=== PATIENT | male | born 1940 | race Caucasian/White ===

== ENCOUNTER 2017-12-04 16:11 | Emergency (ER) | payer MEDICARE, BC ==
[~2017-12-04] VITALS: Ht 180.3 cm; Wt 70.5 kg
[2017-12-04 16:53] VITALS: Ht 180.3 cm; Wt 70.5 kg
[2017-12-04] MEDS ORDERED: METHOTREXATE2.5 MG PO ×2 (16:54→16:55)
[2017-12-04] MEDS ORDERED: COZAAR100 MG PO (16:55)
[2017-12-04] MEDS ORDERED: FOLIC ACID1 MG PO (16:56)
[2017-12-04 17:54] LABS: BASOPHILS 0.4 % (0-2); EOSINOPHILS 2.6 % (0-7); HEMATOCRIT 34.6 % (42.0-54.0); HEMOGLOBIN 11.4 g/dL (13.5-17.5); IMMATURE GRANULOCYTES 0.2 % (0-5); MCH 32.2 pg (26.0-34.0); MCHC 32.9 g/dL (31.0-37.0); MCV 97.7 fL (80.0-100.0); MONOCYTES 3.4 % (2-11); NEUTROPHILS 77.4 % (40-80); PLATELET COUNT 291 10x3/uL (130-400); RBC 3.54 10x6/uL (4.20-6.10); RDW 15.2 % (11.5-14.5); WBC 8.5 10x3/uL (4.8-10.8)
[2017-12-04 18:12] LABS: APTT 28.5 SECONDS (22.8-39.4); INR 1.13 (0.85-1.17); PROTIME 14.1 SECONDS (11.6-15.0)
[2017-12-04 18:18] LABS: ALKALINE PHOSPHATASE 64 U/L (46-116); ALT (SGPT) 18 U/L (10-68); BILIRUBIN - TOTAL 0.52 mg/dL (0.2-1.3); CALC OSMOLALITY 284 mosm/kg (275-300); CALCIUM 8.5 mg/dL (8.5-10.1); CARBON DIOXIDE 28.8 mmol/L (21.0-32.0); CHLORIDE - SERUM 106 mmol/L (98-107); GLUCOSE 157 mg/dL (74-106); POTASSIUM - SERUM 4.5 mmol/L (3.5-5.1); PROTEIN - SERUM 6.5 g/dL (6.4-8.2); SODIUM 140 mmol/L (136-145); UREA NITROGEN 20 mg/dL (7-18); eGFR NON AFRICAN AMERICAN 34 mL/min (90-120)
[2017-12-04 18:55] LABS: CKMB 0.8 U/L (0.0-3.6); LIPASE 161 U/L (73-393); MAGNESIUM - SERUM 2.2 mg/dL (1.8-2.4); TROPONIN-I < 0.017 ng/mL (0.000-0.060)
[2017-12-04 22:29] LABS: BASOPHILS 0.3 % (0-2); EOSINOPHILS 3.2 % (0-7); HEMOGLOBIN 11.7 g/dL (13.5-17.5); IMMATURE GRANULOCYTES 0.1 % (0-5); LYMPHOCYTES 23.6 % (15-50); MCH 32.4 pg (26.0-34.0); MCHC 33.4 g/dL (31.0-37.0); MEAN PLATELET VOLUME 10.1 fL (7.4-10.4); MONOCYTES 3.4 % (2-11); NEUTROPHILS 69.4 % (40-80); PLATELET COUNT 325 10x3/uL (130-400); RBC 3.61 10x6/uL (4.20-6.10); RDW 15.2 % (11.5-14.5); WBC 10.5 10x3/uL (4.8-10.8)
[2017-12-04 22:40] LABS: APTT 29.8 SECONDS (22.8-39.4); INR 1.15 (0.85-1.17); PROTIME 14.3 SECONDS (11.6-15.0)
[2017-12-04 22:41] LABS: D-DIMER-QUANTITATIVE 0.54 ug/mLFEU (0.20-0.54)
[2017-12-04 22:45] LABS: ALBUMIN 3.2 g/dL (3.4-5.0); ALKALINE PHOSPHATASE 69 U/L (46-116); ALT (SGPT) 20 U/L (10-68); BILIRUBIN - TOTAL 0.87 mg/dL (0.2-1.3); CALC OSMOLALITY 281 mosm/kg (275-300); CALCIUM 8.8 mg/dL (8.5-10.1); CHLORIDE - SERUM 107 mmol/L (98-107); CREATININE - SERUM 1.9 mg/dL (0.6-1.3); POTASSIUM - SERUM 4.3 mmol/L (3.5-5.1); PROTEIN - SERUM 6.8 g/dL (6.4-8.2); SODIUM 140 mmol/L (136-145); UREA NITROGEN 21 mg/dL (7-18); eGFR NON AFRICAN AMERICAN 36 mL/min (90-120)
[2017-12-04 22:47] LABS: GLUCOSE 107 mg/dL (74-106)
[2017-12-04 22:56] LABS: CKMB 0.7 U/L (0.0-3.6); CREATINE KINASE 37 UL (21-232)
[2017-12-04 23:06] LABS: TROPONIN-I < 0.017 ng/mL (0.000-0.060)
[2017-12-05 00:22] VITALS: BP 167/71
== END 2017-12-05 00:25 | disposition other institution (70) ==
LOC: D.ER 16:11
PROVIDERS: Family Medicine
DX: G45.9 Transient cerebral ischemic attack, unspecified (principal); G81.91 Hemiplegia, unspecified affecting right dominant side; S61.511A Laceration without foreign body of right wrist, initial encounter; W19.XXXA Unspecified fall, initial encounter; Y93.89 Activity, other specified; Y92.89 Other specified places as the place of occurrence of the external cause; R20.2 Paresthesia of skin; I10 Essential (primary) hypertension

== ENCOUNTER 2018-02-14 14:56 | Emergency (ER) | payer MEDICARE, BC ==
[~2018-02-14] VITALS: Ht 180.3 cm; Wt 67.3 kg
[~2018-02-14 14:56] MED LIST: COZAAR100 MG PO; FOLIC ACID1 MG PO; METHOTREXATE2.5 MG PO
[2018-02-14 15:01] VITALS: Ht 180.3 cm; Wt 67.3 kg
[2018-02-14] MEDS ORDERED: PLAVIX75 MG (15:03)
[2018-02-14] MEDS ORDERED: XARELTO10 MG PO (15:03)
[2018-02-14] MEDS ORDERED: ATORVASTATIN (15:04)
[2018-02-14 15:32] LABS: BASOPHILS 0.5 % (0-2); EOSINOPHILS 7.9 % (0-7); HEMATOCRIT 31.4 % (42.0-54.0); HEMOGLOBIN 10.1 g/dL (13.5-17.5); IMMATURE GRANULOCYTES 0.2 % (0-5); LYMPHOCYTES 19.1 % (15-50); MCH 29.5 pg (26.0-34.0); MCHC 32.2 g/dL (31.0-37.0); MCV 91.8 fL (80.0-100.0); MEAN PLATELET VOLUME 10.3 fL (7.4-10.4); NEUTROPHILS 61.3 % (40-80); RBC 3.42 10x6/uL (4.20-6.10); RDW 14.5 % (11.5-14.5); WBC 8.2 10x3/uL (4.8-10.8)
[2018-02-14 15:33] LABS: PLATELET COUNT 257 10x3/uL (130-400)
[2018-02-14 15:39] LABS: APTT 35.9 SECONDS (22.8-39.4); INR 1.66 (0.85-1.17); PROTIME 19.1 SECONDS (11.6-15.0)
[2018-02-14 15:46] LABS: ANION GAP 14.7 mmol/L (8-16); BILIRUBIN - TOTAL 0.41 mg/dL (0.2-1.3); CALCIUM 8.2 mg/dL (8.5-10.1); CARBON DIOXIDE 23.3 mmol/L (21.0-32.0); PROTEIN - SERUM 6.9 g/dL (6.4-8.2)
[2018-02-14 17:29] VITALS: BP 158/74
== END 2018-02-14 17:32 | disposition home or self-care (01) ==
LOC: D.ER 14:56
PROVIDERS: Family Medicine
DX: S09.90XA Unspecified injury of head, initial encounter (principal); S51.011A Laceration without foreign body of right elbow, initial encounter; W10.9XXA Fall (on) (from) unspecified stairs and steps, initial encounter; Y93.89 Activity, other specified; Y92.019 Unspecified place in single-family (private) house as the place of occurrence of the external cause; Z86.73 Personal history of transient ischemic attack (TIA), and cerebral infarction without residual deficits; I10 Essential (primary) hypertension

== ENCOUNTER 2018-06-25 09:55 | Inpatient (IN) | payer MEDICARE, BC ==
[~2018-06-25] VITALS: Ht 180.3 cm; Wt 68.2 kg
--- NOTE | ~2018-06-25 | CN ---
PATIENT NAME:GARO BROWN JR. MEDICAL RECORD: [id number] : 36 LOCATION:. D.2121 ADMIT DATE: 06/25/18 ACCOUNT: [id number] CONSULTING PHYSICIAN: POLLO SEYMOUR MD REFERRING PHYSICIAN: MICHEL ACEVEDO MD DATE OF CONSULTATION: 06/25/2018 Pulmonary Consultation CONSULT REQUESTING PHYSICIAN: Dr. Acevedo. REASON FOR CONSULTATION: Suspect COPD. HISTORY OF PRESENT ILLNESS: Mr. Brown is an 78-year-old gentleman who has coronary artery disease, atrial fibrillation. The patient came into the hospital with tachycardia and shortness of breath, found out the patient was in atrial fibrillation with rapid ventricular response. Now, he is feeling a little bit better. Denies any fever or chill, no night sweats. No yellow color sputum production. He does not hear himself wheezing. PAST MEDICAL HISTORY: 1. History of cerebrovascular accident. 2. Hypertension. 3. Coronary artery disease and NM. PAST SURGICAL HISTORY: Cardiac catheterization and stent placement. MEDICATIONS: Fluent Home is reviewed. PERSONAL AND SOCIAL HISTORY: The patient is an ex-smoker. He quit 1980. He is a nondrinker. FAMILY HISTORY: Significant for hypertension. PHYSICAL EXAMINATION: GENERAL: Now, the patient is lying comfortably, but he is not in acute distress. VITAL SIGNS: The blood pressure is 117/64, pulse is 84 to 114, temperature 97.9, SPO2 is 96% on room air. HEENT: Conjunctivae are pink. Sclerae are not icteric. NECK: Supple, no JVD. CHEST: Excursion is minimal on both sides. There is no wheeze, no rales. HEART: Rate and rhythm irregular. Normal sound. No murmur. ABDOMEN: Soft, bowel sounds present. No hepatosplenomegaly. RECTAL: Deferred. EXTREMITIES: No cyanosis, no clubbing, no pedal edema. CENTRAL NERVOUS SYSTEM: The patient is awake and alert. There is no obvious cranial nerve abnormality. The patient is a bit hard of hearing. OTHER LABORATORY DATA: CBC: The WBC is 13.4, hemoglobin is 10.3, hematocrit is 32.9, the platelet count is 698. Chemistry: Sodium 143, potassium 4.1, BUN is 21, creatinine 2.5. IMPRESSION: 1. Dyspnea, most likely secondary to atrial fibrillation with rapid ventricular CONSULT REPORT [id number] STEPHANIEGARO . response. 2. Ex-smoker. 3. Suspect chronic obstructive pulmonary disease. 4. Leukocytosis. 5. Chronic kidney disease, start him on doxycycline. 6. Check alpha 1 level. The patient will need workup for COPD with PFTs as outpatient. IMAGING: Chest radiograph, there were large hiatal hernia with air-fluid level. Otherwise, there are no acute infiltrates. Dr. Acevedo, thank you for involving me in the care of Mr. Brown. TRANSINT:[id number] Voice Confirmation ID: [id number] DOCUMENT ID: [id number] POLLO SEYMOUR MD CC: [id number] DICTATION DATE: 06/25/18 163 RADIO EQUIPMENT INSTALLER: 06/25/182235 ADM IN [id number] [place] [address]
[~2018-06-25 09:55] MED LIST changes: +ATORVASTATIN; -COZAAR100 MG PO; +COZAAR50 MG PO; +PLAVIX75 MG PO; +XARELTO15 MG PO
[2018-06-25 10:33] VITALS: BP 129/69
[2018-06-25 10:36] LABS: APTT 49.6 SECONDS (22.8-39.4); INR 2.82 (0.85-1.17)
[2018-06-25 10:38] LABS: ALBUMIN 2.7 g/dL (3.4-5.0); ALKALINE PHOSPHATASE 68 U/L (46-116); ALT (SGPT) 27 U/L (10-68); BILIRUBIN - TOTAL 0.48 mg/dL (0.2-1.3); CALC OSMOLALITY 291 mosm/kg (275-300); CALCIUM 8.6 mg/dL (8.5-10.1); CARBON DIOXIDE 23.7 mmol/L (21.0-32.0); CHLORIDE - SERUM 106 mmol/L (98-107); CREATININE - SERUM 2.5 mg/dL (0.6-1.3); POTASSIUM - SERUM 4.1 mmol/L (3.5-5.1); PROTEIN - SERUM 7.1 g/dL (6.4-8.2); SODIUM 143 mmol/L (136-145); UREA NITROGEN 21 mg/dL (7-18); eGFR NON AFRICAN AMERICAN 26 mL/min (90-120)
[2018-06-25 10:39] LABS: GLUCOSE 178 mg/dL (74-106)
[2018-06-25 10:44] LABS: BASOPHILS 0.4 % (0-2); EOSINOPHILS 1.9 % (0-7); HEMATOCRIT 32.9 % (42.0-54.0); HEMOGLOBIN 10.3 g/dL (13.5-17.5); IMMATURE GRANULOCYTES 0.2 % (0-5); LYMPHOCYTES 14.7 % (15-50); MCH 29.1 pg (26.0-34.0); MCHC 31.3 g/dL (31.0-37.0); MCV 92.9 fL (80.0-100.0); MEAN PLATELET VOLUME 10.2 fL (7.4-10.4); MONOCYTES 2.5 % (2-11); NEUTROPHILS 80.3 % (40-80); RBC 3.54 10x6/uL (4.20-6.10); RDW 18.9 % (11.5-14.5); WBC 13.4 10x3/uL (4.8-10.8)
[2018-06-25 10:50] VITALS: BP 99/58
[2018-06-25 10:50] LABS: CKMB 0.7 U/L (0.0-3.6); CREATINE KINASE 25 UL (21-232); MAGNESIUM - SERUM 2.2 mg/dL (1.8-2.4); TROPONIN-I < 0.017 ng/mL (0.000-0.060)
[2018-06-25 10:55] LABS: PLATELET COUNT 698 10x3/uL (130-400)
[2018-06-25 11:44] VITALS: BP 96/56
--- NOTE | 2018-06-25 12:42 | NUR ---
RECEIVED REPORT FROM ER. NURSE STATES DR. ARCHER WILL HAVE TO CHANGE THE ORDER FOR THE CARDIZEM DRIP FROM 10ML/HR TO 5ML/HR.
--- NOTE | 2018-06-25 13:32 | NUR ---
TRANSFER FROM ER BY STRETCHER. OREINTED TO ROOM. CALL LIGHT IN REACH. WILL CONT. PLAN OF CARE.
[2018-06-25] MEDS ORDERED: LIPITOR80 MG PO (13:40)
[2018-06-25] MEDS ORDERED: FERROUS SULFAT325 MG PO (13:40)
[2018-06-25 13:50] VITALS: BP 117/64; BMI 20.9
[2018-06-25] MEDS ORDERED: DESERYL50 M2 PO (14:19)
--- NOTE | 2018-06-25 14:58 | NUR ---
SPOKE WITH HAN QUIROZ AND SHE STATES SHE IS OK WITH DC'ING NS AND TO TURN CARDIZEM DRIP DOWN TO 5ML/HR AND SHE WILL ORDER A PO DOSE OF CARDIZEM AND GIVE THAT THEN WAIT TWO HOURS AND IF PT HEART RATE IS STILL STABLE TO TURN OFF CARDIZEM DRIP. VERBALIZED UNDERSTANDING. TURNED CARDIZEM DRIP DOWN FROM 10ML/HR TO 5ML/HR. PT 70 CONTROL AFIB ON TELEMETRY AND BP 117/56. PT HAS N O FURTHER NEEDS AT THIS TIME. WILL CONTINUE TO MONITOR.
--- NOTE | 2018-06-25 14:58 | NUR ---
SPOKE WITH HAN QUIROZ AND SHE STATES TO TURN CARDIZEM DRIP DOWN TO 5ML/HR FROM 10ML/HR AND SHE WILL ORDER A PO DOSE OF CARDIZEM AND GIVE THAT AT ABOUT 1500 THEN WAIT TWO HOURS AND IF PT HEART RATE IS STILL STABLE TO TURN OFF CARDIZEM DRIP. VERBALIZED UNDERSTANDING. TURNED CARDIZEM DRIP DOWN FROM 10ML/HR TO 5ML/HR. PT 70 CONTROL AFIB ON TELEMETRY AND BP 117/56. PT HAS NO FURTHER NEEDS AT THIS TIME. WILL CONTINUE TO MONITOR.
[2018-06-25 15:35] VITALS: Ht 180.3 cm; Wt 68.2 kg
--- NOTE | 2018-06-25 15:41 | NUR ---
DARREN QUIROZ STATES THAT SHE WILL ORDER PO ROSALES.
[2018-06-25 16:44] LABS: % SATURATION 25 % (15-55); IRON 58 ug/dl (35-150); TOTAL IRON BIND CAPACITY 229 ug/dl (260-445); UNSAT IRON BIND CAPACITY 171 ug/dl (150-375)
--- NOTE | 2018-06-25 16:46 | NUR ---
PT RUNNING 72 CONTROL AFIB ON TELEMETRY. PO CARDIZEM GIVEN. WILL DC CARDIZEM DRIP AT 1845.
--- NOTE | 2018-06-25 17:53 | NUR ---
PT IS RUNNING 73 CONTROL AFIB ON THE MONITOR.
--- NOTE | 2018-06-25 18:42 | NUR ---
PT 72 CONTROL AFIB ON TELEMETRY. ROSALES ARRIOLA DC'D ORDERED. WILL CONTINUE TO MONITOR.
--- NOTE | 2018-06-25 18:44 | NUR ---
EXPLAINED TO PT WE NEED A STOOL AND URINE COLLECTION. PT VERBALIZED UNDERSTANDING. HAT PLACED IN COMMODE.
[2018-06-25 19:42] LABS: APPEARANCE HAZY (CLEAR); BILIRUBIN NEGATIVE (NEGATIVE); COLOR YELLOW (YELLOW); GLUCOSE NEGATIVE (NEGATIVE); KETONE NEGATIVE (NEGATIVE); NITRITE NEGATIVE (NEGATIVE); PROTEIN 1+ mg/dL (NEGATIVE); RED CELLS - URINE 0-5 /hpf (0-5); SPECIFIC GRAVITY 1.015 (1.005-1.020); UROBILINOGEN NORMAL (NORMAL); WHITE CELLS - URINE 0-5 /hpf (0-5)
[2018-06-25 19:43] LABS: BACTERIA MANY /hpf (NONE SEEN)
[2018-06-25 20:00] VITALS: BP 104/50
[2018-06-26] VITALS: BP 106/70
[2018-06-26 05:19] LABS: BASOPHILS 0.5 % (0-2); EOSINOPHILS 4.2 % (0-7); HEMATOCRIT 26.7 % (42.0-54.0); HEMOGLOBIN 8.3 g/dL (13.5-17.5); IMMATURE GRANULOCYTES 0.2 % (0-5); LYMPHOCYTES 16.4 % (15-50); MCHC 31.1 g/dL (31.0-37.0); MCV 93.4 fL (80.0-100.0); MEAN PLATELET VOLUME 10.1 fL (7.4-10.4); MONOCYTES 5.5 % (2-11); NEUTROPHILS 73.2 % (40-80); RBC 2.86 10x6/uL (4.20-6.10); RDW 18.9 % (11.5-14.5); WBC 10.1 10x3/uL (4.8-10.8)
[2018-06-26 05:32] LABS: PLATELET COUNT 517 10x3/uL (130-400)
[2018-06-26 05:42] LABS: INR 1.67 (0.85-1.17); PROTIME 19.1 SECONDS (11.6-15.0)
--- NOTE | 2018-06-26 06:00 | NUR ---
PATIENT RESTING COMFORTABLY IN BED. RESPIRATIONS ARE EVEN AND UNLABORED. NO S/S OF DISTRESS. NO C/O PAIN. CALL LIGHT WITHIN REACH. WILL CPOC.
[2018-06-26 07:51] LABS: ANION GAP 13.3 mmol/L (8-16); BILIRUBIN - TOTAL 0.38 mg/dL (0.2-1.3); CALCIUM 7.6 mg/dL (8.5-10.1); CREATININE - SERUM 2.3 mg/dL (0.6-1.3); MAGNESIUM - SERUM 1.7 mg/dL (1.8-2.4); POTASSIUM - SERUM 4.3 mmol/L (3.5-5.1); PROTEIN - SERUM 5.4 g/dL (6.4-8.2)
[2018-06-26 08:39] VITALS: BP 133/57
--- NOTE | 2018-06-26 09:30 | NUR ---
RESTS IN BED WITH CALL LIGHT IN REACH. IV PATENT. FAMILY MEMBER AT BS. CALL LIGHT IN REACH. WILL CONT. PLAN OF CARE.
--- NOTE | 2018-06-26 10:43 | NUR ---
REPORT RECEIVED. WILL CONTINUE WITH POC. PT CURRENTLY LYING SEMI FOWLERS. CALL LIGHT W/I REACH. PT IS AAO AND UP AD BRYAN. FAMILY AT BEDSIDE. RR EVEN AND UNLABORED ON RA. NS INFUSING @100ML/HR VIA L.AC PIV. PT DENIES ANY NEEDS AT THIS TIME. AM MEDICATIONS ADMINISTERED. 0600 MEDICATIONS NOT GIVEN PER NIGHTSHIFT R/T SYSTEM SHUTDOWN AND NO ACCESS TO PYXIS. WILL ADMINISTER NEXT DOSE ON THOSE MEDICATIONS. WILL CTM.
[2018-06-26 11:36] VITALS: BP 123/72
[2018-06-26] MEDS ORDERED: CARDIZEM CD180 MG PO (12:40)
[2018-06-26] MEDS ORDERED: VIBRAMYCIN 100100 MG PO (12:44)
--- NOTE | 2018-06-26 14:30 | NUR ---
PT DISCHARGED HOME VIA WHEELCHAIR WITH FAMILY. PT SIGNED PROPER DISCHARGE INSTRUCTION AND REMOVED ALL VALUABLES FROM THE ROOM. PIV REMOVED WITH CATHETER TIP FULLY INTACT. TELEMTRY REMOVED AND RETURNED.
--- NOTE | 2018-06-26 16:46 | MORECARE ---
CASE MANAGEMENT DISCHARGE SUMMARY PATIENT: GARO BROWN JR. UNIT: [id number] ADM DATE: 06/25/18 AGE: 78 : 38 SEX: M ROOM/BED: D.2123 AUTHOR: PIO,DOC PHYSICIAN: REFERRING PHYSICIAN: MICHEL ACEVEDO MD DATE OF SERVICE: 06/26/18 Discharge Plan Patient Name: GARO BROWN Facility: [facility]:Emblem : 1940 Planned Disposition: Home Anticipated Discharge Date: 06/26/18 Discharge Date: 06/26/2018 Expected LOS: 1 Initial Reviewer: [email or web address] Initial Review Date: 06/26/2018 Generated: 06/26/18 5:46 pm Comments DCP- Discharge Planning Updated by [email or web address]: Peter Davis on 06/26/18 3:[address] Patient Name: GARO BROWN Admission Status: ER Accout number: [id number] Admission Date: 06-25-2018 : 1940 Admission Diagnosis:SHORTNESS OF BREATH Attending: KRISTINA, Current LOS: 1 Anticipated DC Date: 06-26-2018 Planned Disposition: Home Primary Insurance: MEDICARE A & B Discharge Planning Comments: CM MET WITH PT AND DAUGHTER IN ROOM TO DISCUSS DISCHARGE PLANNING AND NEEDS. GARO BROWN provided verbal consent to discuss current and ongoing needs with/in the presence of: DAUGHTERFALGUNI. PT REPORTS LIVING AT HOME INDEPENDENTLY AND ALONE. PT HAS NO MEDICAL EQUIPMENT AND NO OUTSIDE SERVICES ASSISTING IN THE HOME. CM DISCUSSED AVAILABILITY OF HOME HEALTH, REHAB SERVICES AND MEDICAL EQUIPMENT. PT DENIES DISCHARGE NEEDS, REPORTS HIS DAUGHTER WILL PICK HIM UP FOR DISCHARGE HOME TODAY. CIDER PRESS OPERATOR NURSE NOTIFIED. Blackjack Pit Boss: Peter Davis DCPIA - Discharge Planning Initial Assessment Updated by [email or web address]: Peter Davis on 06/26/18 4:40 pm * Is the patient Alert and Oriented? Yes * How many steps to enter\exit or inside your home? * PCP DR. RIVERA * Pharmacy [address] * Preadmission Environment Home Alone * ADLs Independent * Equipment None * Other Equipment NO MEDICAL EQUIPMENT PROVIDER PREFERENCE * List name and contact numbers for known caregivers / representatives who currently or will assist patient after discharge: FALGUNI CARTER DTR, * Verbal permission to speak to the caregivers and representatives has been obtained from the patient. Yes * Community resources currently utilized None * Please name any agencies selected above. NONE * Additional services required to return to the preadmission environment? No * Can the patient safely return to the preadmission environment? Yes * Has this patient been hospitalized within the prior 30 days at any hospital? No Patient Name: GARO BROWN Page [id number] at 1646 All edits/amendments must be made on the electronic document DICTATION DATE: 06/26/181645 CROP OR GRAIN FARMER: CAMELIA 06/26/181645 RPT#: [id number] DC DATE:06/26/18 STATUS: DIS IN [facility] [address] [place] [address] END OF REPORT
[2018-06-27 08:17] LABS: FOLATE (FOLIC ACID) - SERUM 9.1 ng/mL (>3.0)
== END 2018-06-26 14:32 | disposition home or self-care (01) | DRG 309 ==
LOC: D.ER 09:55 → D.EDHOLD 11:13 → D.M2 11:13
PROVIDERS: Family Medicine; ADMIT Family Medicine
DX: I48.91 Unspecified atrial fibrillation (principal); N39.0 Urinary tract infection, site not specified; I25.10 Atherosclerotic heart disease of native coronary artery without angina pectoris; J44.9 Chronic obstructive pulmonary disease, unspecified; I12.9 Hypertensive chronic kidney disease with stage 1 through stage 4 chronic kidney disease, or unspecified chronic kidney disease; N18.9 Chronic kidney disease, unspecified; I95.9 Hypotension, unspecified; E78.5 Hyperlipidemia, unspecified; D64.9 Anemia, unspecified; M06.9 Rheumatoid arthritis, unspecified; N40.0 Benign prostatic hyperplasia without lower urinary tract symptoms; Z86.73 Personal history of transient ischemic attack (TIA), and cerebral infarction without residual deficits; Z87.891 Personal history of nicotine dependence

== ENCOUNTER 2018-07-02 16:27 | Emergency (ER) | payer MEDICARE, BC ==
[~2018-07-02] VITALS: Ht 180.3 cm; Wt 68.2 kg
[~2018-07-02 16:27] MED LIST changes: +CARDIZEM CD180 MG PO; +DESERYL50 M2 PO; +FERROUS SULFAT325 MG PO; +LIPITOR80 MG PO; +VIBRAMYCIN 100100 MG PO
[2018-07-02 16:41] VITALS: Ht 180.3 cm; Wt 68.2 kg
[2018-07-02 17:22] LABS: BASOPHILS 0.4 % (0-2); EOSINOPHILS 3.9 % (0-7); HEMOGLOBIN 9.5 g/dL (13.5-17.5); IMMATURE GRANULOCYTES 0.3 % (0-5); LYMPHOCYTES 20.2 % (15-50); MCH 29.2 pg (26.0-34.0); MCHC 31.7 g/dL (31.0-37.0); MCV 92.3 fL (80.0-100.0); MEAN PLATELET VOLUME 9.9 fL (7.4-10.4); MONOCYTES 5.7 % (2-11); NEUTROPHILS 69.5 % (40-80); PLATELET COUNT 477 10x3/uL (130-400); RBC 3.25 10x6/uL (4.20-6.10); RDW 19.1 % (11.5-14.5); WBC 9.8 10x3/uL (4.8-10.8)
[2018-07-02 17:35] LABS: ALBUMIN 2.7 g/dL (3.4-5.0); ANION GAP 15.3 mmol/L (8-16); BILIRUBIN - TOTAL 0.4 mg/dL (0.2-1.3); CALCIUM 8.4 mg/dL (8.5-10.1); CARBON DIOXIDE 22.7 mmol/L (21.0-32.0); CREATININE - SERUM 2.1 mg/dL (0.6-1.3); PROTEIN - SERUM 6.7 g/dL (6.4-8.2)
[2018-07-02 18:39] LABS: % SATURATION 26 % (15-55); IRON 58 ug/dl (35-150); TOTAL IRON BIND CAPACITY 215 ug/dl (260-445); UNSAT IRON BIND CAPACITY 157 ug/dl (150-375)
[2018-07-02 19:13] VITALS: BP 164/85
[2018-07-04 08:16] LABS: FOLATE (FOLIC ACID) - SERUM >20.0 ng/mL (>3.0)
== END 2018-07-02 19:15 | disposition home or self-care (01) ==
LOC: D.ER 16:27
PROVIDERS: Emergency Medicine
DX: D64.9 Anemia, unspecified (principal); Z79.01 Long term (current) use of anticoagulants; I25.10 Atherosclerotic heart disease of native coronary artery without angina pectoris; Z86.79 Personal history of other diseases of the circulatory system; Z86.73 Personal history of transient ischemic attack (TIA), and cerebral infarction without residual deficits

== ENCOUNTER 2019-11-30 09:36 | Day surgery (SDC) | payer MEDICARE, BC ==
[~2019-11-30] VITALS: Ht 180.3 cm; Wt 72.6 kg
[2019-11-30 09:59] LABS: BASOPHILS 0.2 % (0-2); EOSINOPHILS 2.9 % (0-7); HEMATOCRIT 38.7 % (42.0-54.0); HEMOGLOBIN 12.8 g/dL (13.5-17.5); LYMPHOCYTES 16.7 % (15-50); MCH 33.3 pg (26.0-34.0); MCHC 33.1 g/dL (31.0-37.0); MCV 100.8 fL (80.0-100.0); MEAN PLATELET VOLUME 9.6 fL (7.4-10.4); MONOCYTES 8.3 % (2-11); NEUTROPHILS 70.9 % (40-80); PLATELET COUNT 378 10x3/uL (130-400); RBC 3.84 10x6/uL (4.20-6.10); RDW 14.8 % (11.5-14.5); WBC 11.9 10x3/uL (4.8-10.8)
[2019-11-30 10:11] LABS: ANION GAP 13.2 mmol/L (8-16); CALCIUM 9.2 mg/dL (8.5-10.1); CARBON DIOXIDE 24.3 mmol/L (21.0-32.0); POTASSIUM - SERUM 4.5 mmol/L (3.5-5.1)
[2019-11-30 10:49] VITALS: Ht 180.3 cm; Wt 72.6 kg
[2019-11-30] MEDS ORDERED: LOVENOX40 MG/0.4 (11:07)
[2019-11-30] MEDS ORDERED: ULTRAM50 MG PO (12:18)
--- NOTE | 2019-11-30 16:38 | NUR ---
RIGHT FOREARM PIV DC'D WITH TIP INTACT. PATIENT DRESSING IN PERSONAL CLOTHING. DEMONSTRATION GIVEN TO DAUGHTER WHO IS ASSISTING PATIENT TO DRESS ON HOW TO DRESS PATIENT WHILE CARING FOR LEFT ARM AND LEAVING ARM IN SLING 1650 DISCHARGE INSTRUCTIONS REVIEWED WITH PATIENT AND DAUGHTER. DISCHARGED HOME VIA WHEELCHAIR TO PRIVATE VEHICLE WITH DAUGHTER
--- NOTE | 2019-12-01 07:17 | OP ---
PATIENT NAME: GARO BROWN II MEDICAL RECORD: [id number] :36 [facility] DATE: SURGEON: YURI MELISSA DO DATE OF OPERATION: 11/30/2019 PROCEDURE PERFORMED: Left olecranon open reduction internal fixation. PREOPERATIVE DIAGNOSIS: Closed left displaced olecranon fracture. POSTOPERATIVE DIAGNOSIS: Closed left displaced olecranon fracture. INDICATIONS: Mr. Brown is an 79-year-old male who fell onto his left elbow. He did not see us for about a week and was made to go to the doctor. X-rays were taken there and seen a displaced transverse fracture through the articular surface of the olecranon. He was then sent to my office. I informed him we need to fix it, but he was on blood thinners, he stopped his Plavix and his Xarelto last week and then he went on Lovenox shots. He stopped those Friday, the patient was aware of the risks including infection, bleeding, malunion, nonunion, continued pain, failure of hardware, and damage to nerves in the area including the ulnar nerve, radial nerve, and median nerve. He signed the consent. SURGEON: Yuri Melissa DO DESCRIPTION OF PROCEDURE: The patient was taken to the operative suite after getting block per anesthesia in the preoperative area, given general anesthetic and LMA was placed, given 2 grams of Ancef preoperatively. Left upper extremity was then prepped and draped in a sterile fashion. A timeout was performed and everyone was in agreement with the correct side, site, patient, and procedure. We then exsanguinated the left upper extremity with Esmarch and tourniquet was inflated to 250 mmHg, was up for 22 minutes. We then made an incision over the olecranon curving radially and made careful dissection to the olecranon process, cleaned out the fracture site, reduced it and put a plate on it. Once the plate was in good position, I put a compression screw in distally and then another locking screw and then 3 locking screws in proximally, 1 long screw through the fracture site and then put 1 more locking screw in distally. I then removed the fast guides and the tourniquet was let down. All bleeding was coagulated with a pickup and Bovie and then irrigated the site and the site was closed with 2-0 Vicryl in inverted interrupted fashion by myself and Enrico Schultz, surgical first assistant student, 2-0 Vicryl in inverted interrupted fashion. ZipLine placed on it and was dressed with Adaptic, 4 x 4s, ABD, cast padding and a 4 x 30 posterior splint was placed with a 90-degree bend in the elbow and secured with an Jj wrap. He was then awakened and taken to recovery in stable condition. BLOOD LOSS: Minimal. COMPLICATION: None. TRANSINT:[id number] Voice Confirmation ID: [id number] DOCUMENT ID: [id number] OPERATIVE REPORT [id number] GARO BROWN II, MICHAEL D, DO at 0717 CC: [id number] DICTATION DATE: 11/30/19 1508 HOTEL SERVICE MANAGER: 12/01/19 0110 [facility] 11/30/19 [id number] [place] [address]
== END 2019-11-30 16:50 | disposition home or self-care (01) ==
LOC: D.OPS 09:36 → D.PAN 11:30 → D.OPS 16:15 → D.PAN 16:15 → D.OPS 16:50
PROVIDERS: Anesthesiology; ATTEND Orthopaedic Surgery
DX: S52.022A Displaced fracture of olecranon process without intraarticular extension of left ulna, initial encounter for closed fracture (principal); X58.XXXA Exposure to other specified factors, initial encounter; I48.91 Unspecified atrial fibrillation; I25.2 Old myocardial infarction